=== PATIENT | female | born 1945 | race Caucasian/White ===

== ENCOUNTER 2017-12-17 19:01 | Inpatient (IN) | payer MEDICARE, OTHER ==
[~2017-12-17] VITALS: Ht 160 cm; Wt 79.5 kg
[2017-12-17] VITALS (132 sets, daily range): BP systolic 144; BP diastolic 98; PULSE 105; TEMP 97.7; O2SAT 89–100
[2017-12-17 21:54] LABS: BASO % 0.3 % (0.0-2.0); EOS # 0.1 (0.0-0.7); EOS % 1.1 % (0-4.0); GRAN # 6.4 (1.4-6.5); GRAN % 84.9 % (42.2-75.2); HEMATOCRIT 42.2 % (37.0-47.0); HEMOGLOBIN 13.8 g/dl (12.5-16.0); LYMPH # 0.6 (1.2-3.4); LYMPH % 8.2 % (20.0-51.0); MEAN CELL VOLUME 85 fl (80.0-100.0); MEAN CORPUSCULAR HEMOGLOBIN 28 pg (27.0-31.0); MEAN CORPUSCULAR HGB CONC 33 g/dl (33.0-37.0); MEAN PLATELET VOLUME 11.8 fl (7.4-10.4); MONO # 0.4 (0.1-0.6); MONO % 5.4 % (1.7-9.3); PLATELET COUNT 175 K/mm3 (130-400); RED BLOOD COUNT 4.96 M/mm3 (4.10-5.30); REDCELL DISTRIBUTION WIDTH-CV 15.9 % (11.5-14.5)
[2017-12-17 21:59] LABS: INR 1.2 (0.8-3.0)
[2017-12-17 22:03] LABS: MAGNESIUM 2.1 mg/dL (1.6-2.3); PHOSPHOROUS 4.4 mg/dL (2.5-4.5)
[2017-12-17 22:10] LABS: ALBUMIN 2.5 gm/dL (3.5-5.0); BILIRUBIN UNCONJUGATED 0.9 mg/dL (0.0-1.1); BILIRUBIN,DIRECT 0.4 mg/dL (0.0-0.4); BILIRUBIN,TOTAL 1.3 mg/dL (0.0-1.0); CALCIUM 8.3 mg/dL (8.4-10.2); CREATININE, serum 2.77 mg/dL (0.52-1.25); TOTAL PROTEIN 5.1 gm/dL (6.4-8.2)
[2017-12-17 22:12] LABS: POTASSIUM 2.7 mmol/L (3.4-5.0)
[2017-12-17] MEDS ORDERED: TOPROL XL 25MG25 MG PO (22:35)
[2017-12-17] MEDS ORDERED: PRINIVIL20 MG PO (22:35)
[2017-12-17] MEDS ORDERED: LASIX 20MG TABL20 MG PO (22:36)
[2017-12-18] VITALS (791 sets, daily range): BP systolic 125–147; BP diastolic 65–87; PULSE 92–102; TEMP 96.9–97.9; O2SAT 91–100
[2017-12-18 00:47] LABS: PRE ALBUMIN 11.9 mg/dL (17.6-36.0)
[2017-12-18 01:27] LABS: HYALINE CAST >12 /lpf; MUCOUS Present /lpf; PH 5 (5-8); URINE APPEARANCE Cloudy; URINE BACTERIA Moderate /hpf; URINE BILIRUBIN Negative (NEGATIVE); URINE BLOOD 3+ (NEGATIVE); URINE COLOR Amber; URINE GLUCOSE 1+ (NEGATIVE); URINE KETONE Negative (NEGATIVE); URINE LEUKOCYTE ESTERASE Negative (NEGATIVE); URINE NITRATE Negative (NEGATIVE); URINE PROTEIN(semi-quant) 3+ (NEGATIVE); URINE RBC >50 /hpf; URINE UROBILINOGEN Negative (NEGATIVE)
[2017-12-18 01:46] LABS: COLLECTION METHOD CLEAN CATCH
[2017-12-18 05:37] LABS: BASO % 0.4 % (0.0-2.0); EOS # 0.1 (0.0-0.7); EOS % 0.9 % (0-4.0); GRAN # 5.6 (1.4-6.5); GRAN % 83.6 % (42.2-75.2); HEMATOCRIT 43.7 % (37.0-47.0); HEMOGLOBIN 13.8 g/dl (12.5-16.0); LYMPH # 0.6 (1.2-3.4); LYMPH % 8.4 % (20.0-51.0); MEAN CELL VOLUME 86 fl (80.0-100.0); MEAN CORPUSCULAR HEMOGLOBIN 27 pg (27.0-31.0); MEAN CORPUSCULAR HGB CONC 32 g/dl (33.0-37.0); MEAN PLATELET VOLUME 12.1 fl (7.4-10.4); MONO # 0.4 (0.1-0.6); MONO % 6.3 % (1.7-9.3); PLATELET COUNT 192 K/mm3 (130-400); RED BLOOD COUNT 5.06 M/mm3 (4.10-5.30); REDCELL DISTRIBUTION WIDTH-CV 15.9 % (11.5-14.5)
[2017-12-18 05:47] LABS: CALCIUM 8.1 mg/dL (8.4-10.2); CREATININE, serum 2.9 mg/dL (0.52-1.25); MAGNESIUM 2.1 mg/dL (1.6-2.3); PHOSPHOROUS 4.2 mg/dL (2.5-4.5); POTASSIUM 3.2 mmol/L (3.4-5.0)
[2017-12-18 20:46] LABS: URINE PROTEIN:CREAT RATIO 18.2 (0.00-0.14)
[2017-12-19] VITALS (80 sets, daily range): BP systolic 126–155; BP diastolic 69–90; PULSE 86–107; TEMP 97.3–98.4; O2SAT 75–98
[2017-12-19 01:17] LABS: COLLECTION METHOD RANDOM VOIDED
[2017-12-19 02:23] LABS: AMORPHOUS CRYSTAL Present /uL; GRANULAR CAST >12 /lpf; MUCOUS Present /lpf; PH 5 (5-8); SQUAMOUS EPITHELIAL >50 /hpf; URINE APPEARANCE Cloudy; URINE BACTERIA Moderate /hpf; URINE BILIRUBIN Negative (NEGATIVE); URINE BLOOD 3+ (NEGATIVE); URINE COLOR Amber; URINE GLUCOSE 1+ (NEGATIVE); URINE KETONE Negative (NEGATIVE); URINE LEUKOCYTE ESTERASE Trace (NEGATIVE); URINE NITRATE Negative (NEGATIVE); URINE PROTEIN(semi-quant) 3+ (NEGATIVE); URINE RBC >50 /hpf; URINE UROBILINOGEN Negative (NEGATIVE); URINE WBC >50 /hpf
[2017-12-19 05:49] LABS: HEMATOCRIT 42.7 % (37.0-47.0); HEMOGLOBIN 13.5 g/dl (12.5-16.0); MEAN CELL VOLUME 87 fl (80.0-100.0); MEAN CORPUSCULAR HEMOGLOBIN 27 pg (27.0-31.0); MEAN CORPUSCULAR HGB CONC 32 g/dl (33.0-37.0); MEAN PLATELET VOLUME 11.7 fl (7.4-10.4); PLATELET COUNT 186 K/mm3 (130-400); RED BLOOD COUNT 4.92 M/mm3 (4.10-5.30); REDCELL DISTRIBUTION WIDTH-CV 16.2 % (11.5-14.5)
[2017-12-19 06:07] LABS: ALBUMIN 2.8 gm/dL (3.5-5.0); BILIRUBIN,TOTAL 1.1 mg/dL (0.0-1.0); CALCIUM 8.3 mg/dL (8.4-10.2); CREATININE, serum 2.9 mg/dL (0.52-1.25); POTASSIUM 3.5 mmol/L (3.4-5.0); TOTAL PROTEIN 5.7 gm/dL (6.4-8.2)
[2017-12-19 06:35] LABS: TROPONIN-I 0.085 ng/mL (0.000-0.034)
[2017-12-19 07:44] LABS: BAND 14 % (0-10); EOSINOPHIL 1 % (0-4); LYMPHOCYTE 4 % (20.0-51.0); NEUTROPHILS 78 % (42.0-75.2); PLATELET ESTIMATE NORMAL (NORMAL)
[2017-12-20] VITALS (25 sets, daily range): BP systolic 103–156; BP diastolic 54–93; PULSE 72–107; TEMP 97.1–98.4
[2017-12-20 08:17] LABS: BASO % 0.5 % (0.0-2.0); EOS # 0.1 (0.0-0.7); EOS % 1.5 % (0-4.0); GRAN # 5.2 (1.4-6.5); GRAN % 79.9 % (42.2-75.2); HEMATOCRIT 41.5 % (37.0-47.0); HEMOGLOBIN 12.9 g/dl (12.5-16.0); LYMPH # 0.7 (1.2-3.4); LYMPH % 11.3 % (20.0-51.0); MEAN CELL VOLUME 89 fl (80.0-100.0); MEAN CORPUSCULAR HEMOGLOBIN 28 pg (27.0-31.0); MEAN CORPUSCULAR HGB CONC 31 g/dl (33.0-37.0); MEAN PLATELET VOLUME 12.3 fl (7.4-10.4); MONO # 0.4 (0.1-0.6); MONO % 6.6 % (1.7-9.3); PLATELET COUNT 187 K/mm3 (130-400); RED BLOOD COUNT 4.68 M/mm3 (4.10-5.30); REDCELL DISTRIBUTION WIDTH-CV 16.3 % (11.5-14.5)
[2017-12-20 08:25] LABS: CALCIUM 8.5 mg/dL (8.4-10.2); CREATININE, serum 2.92 mg/dL (0.52-1.25); POTASSIUM 3.4 mmol/L (3.4-5.0)
[2017-12-20 11:45] LABS: TOTAL COMPLEMENT(CH50) 55 U/mL (30 - 75)
[2017-12-20 23:50] LABS: C-ANCA 7 U/mL (0-99)
[2017-12-21 07:54] VITALS: BP 140/67; PULSE 77; TEMP 97.5
[2017-12-21 08:09] LABS: CREATININE, serum 3.08 mg/dL (0.52-1.25); POTASSIUM 3.2 mmol/L (3.4-5.0)
[2017-12-21 12:01] VITALS: BP 141/68; PULSE 83; TEMP 97.9
[2017-12-21 16:48] VITALS: BP 135/86; PULSE 78; TEMP 98.4
[2017-12-21 20:28] VITALS: BP 129/61; PULSE 84; TEMP 98.1
[2017-12-22 01:54] VITALS: BP 130/84; PULSE 71; TEMP 98.9
[2017-12-22 05:06] VITALS: BP 104/49; PULSE 97; TEMP 97.5
[2017-12-22 07:35] LABS: BASO % 0.5 % (0.0-2.0); EOS # 0.1 (0.0-0.7); EOS % 1.8 % (0-4.0); GRAN # 4.6 (1.4-6.5); GRAN % 76.3 % (42.2-75.2); HEMATOCRIT 38.9 % (37.0-47.0); HEMOGLOBIN 12.2 g/dl (12.5-16.0); LYMPH # 0.8 (1.2-3.4); LYMPH % 12.5 % (20.0-51.0); MEAN CELL VOLUME 87 fl (80.0-100.0); MEAN CORPUSCULAR HEMOGLOBIN 27 pg (27.0-31.0); MEAN CORPUSCULAR HGB CONC 31 g/dl (33.0-37.0); MEAN PLATELET VOLUME 11.8 fl (7.4-10.4); MONO # 0.5 (0.1-0.6); MONO % 8.4 % (1.7-9.3); PLATELET COUNT 161 K/mm3 (130-400); RED BLOOD COUNT 4.47 M/mm3 (4.10-5.30); REDCELL DISTRIBUTION WIDTH-CV 16.5 % (11.5-14.5)
[2017-12-22 07:50] LABS: CALCIUM 8.1 mg/dL (8.4-10.2); CREATININE, serum 3.29 mg/dL (0.52-1.25); PHOSPHOROUS 4.9 mg/dL (2.5-4.5); POTASSIUM 3.4 mmol/L (3.4-5.0)
[2017-12-22 08:10] VITALS: BP 138/82; PULSE 81; TEMP 97.7
[2017-12-22 12:16] VITALS: BP 131/71; PULSE 82; TEMP 97.8
[2017-12-22 16:00] VITALS: BP 131/61; PULSE 92; TEMP 97.5
[2017-12-22 20:06] VITALS: BP 134/61; PULSE 86; TEMP 97.7
[2017-12-23] VITALS (8 sets, daily range): BP systolic 107–157; BP diastolic 66–84; PULSE 83–98; TEMP 97.5–98.3
[2017-12-23 07:10] LABS: URINE PROTEIN:CREAT RATIO 9.08 (0.00-0.14)
[2017-12-23 07:24] LABS: BASO % 0.5 % (0.0-2.0); EOS # 0.1 (0.0-0.7); EOS % 2.1 % (0-4.0); GRAN # 4.5 (1.4-6.5); GRAN % 77.4 % (42.2-75.2); HEMATOCRIT 41.6 % (37.0-47.0); LYMPH # 0.7 (1.2-3.4); LYMPH % 11.7 % (20.0-51.0); MEAN CELL VOLUME 89 fl (80.0-100.0); MEAN CORPUSCULAR HEMOGLOBIN 28 pg (27.0-31.0); MEAN CORPUSCULAR HGB CONC 31 g/dl (33.0-37.0); MEAN PLATELET VOLUME 11.8 fl (7.4-10.4); MONO # 0.5 (0.1-0.6); PLATELET COUNT 167 K/mm3 (130-400); RED BLOOD COUNT 4.68 M/mm3 (4.10-5.30); REDCELL DISTRIBUTION WIDTH-CV 16.4 % (11.5-14.5)
[2017-12-23 07:48] LABS: CALCIUM 8.2 mg/dL (8.4-10.2); CREATININE, serum 3.23 mg/dL (0.52-1.25); POTASSIUM 3.5 mmol/L (3.4-5.0)
[2017-12-23 18:12] LABS: HIV 1/2 Antibodies Non-Reactive; HIV-1p24 Antigen Non-Reactive
[2017-12-23 21:52] LABS: URINE PROTEIN:CREAT RATIO 13.2 (0.00-0.14)
[2017-12-24 04:09] VITALS: BP 132/74; PULSE 92
[2017-12-24 06:38] LABS: BASO % 0.7 % (0.0-2.0); EOS # 0.2 (0.0-0.7); EOS % 2.7 % (0-4.0); GRAN # 4.2 (1.4-6.5); GRAN % 76.4 % (42.2-75.2); HEMATOCRIT 37.5 % (37.0-47.0); LYMPH # 0.6 (1.2-3.4); LYMPH % 11.4 % (20.0-51.0); MEAN CELL VOLUME 87 fl (80.0-100.0); MEAN CORPUSCULAR HEMOGLOBIN 27 pg (27.0-31.0); MEAN CORPUSCULAR HGB CONC 31 g/dl (33.0-37.0); MEAN PLATELET VOLUME 11.4 fl (7.4-10.4); MONO # 0.5 (0.1-0.6); MONO % 8.3 % (1.7-9.3); PLATELET COUNT 163 K/mm3 (130-400); RED BLOOD COUNT 4.32 M/mm3 (4.10-5.30); REDCELL DISTRIBUTION WIDTH-CV 16.1 % (11.5-14.5)
[2017-12-24 06:43] LABS: HEMOGLOBIN 11.7 g/dl (12.5-16.0)
[2017-12-24 06:54] LABS: CALCIUM 7.9 mg/dL (8.4-10.2); CREATININE, serum 3.33 mg/dL (0.52-1.25); POTASSIUM 3.3 mmol/L (3.4-5.0)
[2017-12-24 08:05] VITALS: BP 145/73; PULSE 80; TEMP 97.5
[2017-12-24 12:37] VITALS: BP 148/67; PULSE 87; TEMP 97.5
[2017-12-24 17:22] VITALS: BP 150/69; PULSE 87; TEMP 97.9
[2017-12-24 17:44] LABS: COMPLEMENT-C3 130 mg/dL (79-152); COMPLEMENT-C4 36 mg/dL (18-55)
[2017-12-24 20:16] VITALS: BP 159/92; PULSE 103; TEMP 98.5
[2017-12-25] VITALS (8 sets, daily range): BP systolic 141–156; BP diastolic 72–96; PULSE 86–103; TEMP 97.5–98
[2017-12-25 06:43] LABS: BASO % 0.7 % (0.0-2.0); EOS # 0.1 (0.0-0.7); EOS % 2.2 % (0-4.0); GRAN # 4.5 (1.4-6.5); GRAN % 75.7 % (42.2-75.2); HEMATOCRIT 41.5 % (37.0-47.0); HEMOGLOBIN 12.9 g/dl (12.5-16.0); LYMPH # 0.7 (1.2-3.4); LYMPH % 11.8 % (20.0-51.0); MEAN CELL VOLUME 88 fl (80.0-100.0); MEAN CORPUSCULAR HEMOGLOBIN 27 pg (27.0-31.0); MEAN CORPUSCULAR HGB CONC 31 g/dl (33.0-37.0); MEAN PLATELET VOLUME 11.5 fl (7.4-10.4); MONO # 0.6 (0.1-0.6); MONO % 9.3 % (1.7-9.3); PLATELET COUNT 176 K/mm3 (130-400); RED BLOOD COUNT 4.73 M/mm3 (4.10-5.30); REDCELL DISTRIBUTION WIDTH-CV 16.1 % (11.5-14.5)
[2017-12-25 06:56] LABS: CALCIUM 8.3 mg/dL (8.4-10.2); CREATININE, serum 3.57 mg/dL (0.52-1.25); MAGNESIUM 1.9 mg/dL (1.6-2.3); POTASSIUM 3.7 mmol/L (3.4-5.0)
[2017-12-26 01:06] VITALS: BP 139/68; PULSE 100; TEMP 97.2
[2017-12-26 06:02] LABS: HEMATOCRIT 41.5 % (37.0-47.0); MEAN CELL VOLUME 87 fl (80.0-100.0); MEAN CORPUSCULAR HEMOGLOBIN 27 pg (27.0-31.0); MEAN CORPUSCULAR HGB CONC 31 g/dl (33.0-37.0); MEAN PLATELET VOLUME 11.3 fl (7.4-10.4); PLATELET COUNT 167 K/mm3 (130-400); RED BLOOD COUNT 4.79 M/mm3 (4.10-5.30); REDCELL DISTRIBUTION WIDTH-CV 16.2 % (11.5-14.5)
[2017-12-26 06:28] LABS: CALCIUM 8.2 mg/dL (8.4-10.2); CREATININE, serum 3.65 mg/dL (0.52-1.25); POTASSIUM 3.6 mmol/L (3.4-5.0)
[2017-12-26 09:24] VITALS: BP 150/96; PULSE 102; TEMP 98.2
[2017-12-26 09:38] LABS: ANISOCYTOSIS 1+; BAND 26 % (0-10); LYMPHOCYTE 4 % (20.0-51.0); NEUTROPHILS 70 % (42.0-75.2); PLATELET ESTIMATE NORMAL (NORMAL)
[2017-12-26 09:39] LABS: OVALOCYTES 1+
[2017-12-26 12:37] VITALS: BP 132/73; PULSE 94; TEMP 98.8
[2017-12-26 15:40] VITALS: BP 134/56; PULSE 97; TEMP 97.6
[2017-12-26 19:35] VITALS: BP 128/62; PULSE 98; TEMP 97.9
[2017-12-27 00:54] VITALS: BP 170/123; PULSE 131; TEMP 98.1
[2017-12-27 04:28] VITALS: BP 153/98; PULSE 117; TEMP 97.4
[2017-12-27 06:44] LABS: CALCIUM 8.3 mg/dL (8.4-10.2); POTASSIUM 3.7 mmol/L (3.4-5.0)
[2017-12-27 06:49] LABS: CREATININE, serum 4.14 mg/dL (0.52-1.25)
[2017-12-27 08:00] VITALS: BP 144/59; PULSE 106; TEMP 97.5
[2017-12-27 12:35] VITALS: BP 149/79; PULSE 93; TEMP 96.7
[2017-12-27 16:38] VITALS: BP 121/82; PULSE 82; TEMP 98
[2017-12-27 19:54] VITALS: BP 145/94; PULSE 85; TEMP 97.7
[2017-12-28 00:45] VITALS: BP 148/76; PULSE 84; TEMP 98.7
[2017-12-28 04:46] VITALS: BP 116/65; PULSE 83; TEMP 98.7
[2017-12-28 07:21] VITALS: BP 117/62; PULSE 77; TEMP 97.1
[2017-12-28 07:45] LABS: CALCIUM 8.1 mg/dL (8.4-10.2); MAGNESIUM 2.2 mg/dL (1.6-2.3); POTASSIUM 3.6 mmol/L (3.4-5.0)
[2017-12-28 07:52] LABS: CREATININE, serum 4.56 mg/dL (0.52-1.25)
[2017-12-28 11:32] VITALS: BP 125/73; PULSE 80; TEMP 97.5
[2017-12-28] MEDS ORDERED: ELIQUIS 5MG PO (13:19)
[2017-12-28] MEDS ORDERED: ZESTRIL2.5 MG PO (13:20)
[2017-12-28] MEDS ORDERED: LASIX 40MG TABL40 MG PO (13:20)
[2017-12-28] MEDS ORDERED: PROBIOTIC GOLD1 EACH PO (13:21)
[2017-12-28] MEDS ORDERED: PROTONIX 40MG T40 MG PO (13:21)
[2017-12-28] MEDS ORDERED: ZAROXOLYN 2.52.5 MG PO (13:21)
[2017-12-28] MEDS ORDERED: PREDNISONE20 MG PO (13:21)
[2018-01-08 13:45] LABS: CRYOFIBRINOGEN XXX; CRYOGLOBULIN XXX
== END 2017-12-28 15:39 | disposition home or self-care (01) | DRG 699 ==
LOC: ICU 19:01 → MEDICAL 21:13 → ICU 21:13 → MEDICAL 12-19 16:16
PROVIDERS: Internal Medicine; Internal Medicine Nephrology; Physician Assistant
PROC: 0TB13ZX Excision of Left Kidney, Percutaneous Approach, Diagnostic (ICD-10-PCS; principal; 2017-12-20)
DX: N01.9 Rapidly progressive nephritic syndrome with unspecified morphologic changes (principal); N39.0 Urinary tract infection, site not specified; I74.19 Embolism and thrombosis of other parts of aorta; J90 Pleural effusion, not elsewhere classified; E46 Unspecified protein-calorie malnutrition; N17.9 Acute kidney failure, unspecified; I10 Essential (primary) hypertension; E87.6 Hypokalemia; R73.9 Hyperglycemia, unspecified; Z87.891 Personal history of nicotine dependence; I08.1 Rheumatic disorders of both mitral and tricuspid valves; B96.20 Unspecified Escherichia coli [E. coli] as the cause of diseases classified elsewhere
CPT/HCPCS: 99222-AI; 99231-AI; 99232-AI; 99233-AI; 99239; G0365; J0360; J1644; J1815; J2250; J2930; J3010; J3411; J3475; J3480; J7040; J7060; J7512

== ENCOUNTER → 2018-01-02 | Outpatient (CLI) | payer MEDICARE, OTHER ==
[~2018-01-02] MED LIST: ELIQUIS 5MG PO; LASIX 20MG TABL20 MG PO; LASIX 40MG TABL40 MG PO; PREDNISONE20 MG PO; PRINIVIL20 MG PO; PROBIOTIC GOLD1 EACH PO; PROTONIX 40MG T40 MG PO; TOPROL XL 25MG25 MG PO; ZAROXOLYN 2.52.5 MG PO; ZESTRIL2.5 MG PO
[2018-01-02 16:13] LABS: HEMATOCRIT 42.3 % (37.0-47.0); HEMOGLOBIN 13.6 g/dl (12.5-16.0); MEAN CELL VOLUME 85 fl (80.0-100.0); MEAN CORPUSCULAR HEMOGLOBIN 27 pg (27.0-31.0); MEAN CORPUSCULAR HGB CONC 32 g/dl (33.0-37.0); MEAN PLATELET VOLUME 12.7 fl (7.4-10.4); PLATELET COUNT 224 K/mm3 (130-400); RED BLOOD COUNT 4.96 M/mm3 (4.10-5.30); REDCELL DISTRIBUTION WIDTH-CV 16.8 % (11.5-14.5)
[2018-01-02 16:20] LABS: ALBUMIN 2.8 gm/dL (3.5-5.0); CALCIUM 8.4 mg/dL (8.4-10.2); POTASSIUM 4.2 mmol/L (3.4-5.0)
[2018-01-02 16:39] LABS: PHOSPHOROUS 11.1 mg/dL (2.5-4.5)
[2018-01-02 16:42] LABS: CREATININE, serum 5.46 mg/dL (0.52-1.25)
== END ==
LOC: COL.LAB 15:39
PROVIDERS: Internal Medicine
DX: N17.9 Acute kidney failure, unspecified (principal); N05.9 Unspecified nephritic syndrome with unspecified morphologic changes

== ENCOUNTER 2018-01-06 17:11 | Inpatient (IN) | payer MEDICARE, OTHER ==
[~2018-01-06] VITALS: Ht 160 cm; Wt 78.6 kg
[2018-01-06 17:29] VITALS: BP 153/90; PULSE 95; TEMP 98
[2018-01-06 20:07] VITALS: BP 146/88; PULSE 98; TEMP 98.1
[2018-01-06 23:11] VITALS: BP 148/96; PULSE 98; TEMP 97.4
[2018-01-07] VITALS (12 sets, daily range): BP systolic 136–167; BP diastolic 66–96; PULSE 57–107; TEMP 97.2–98.6
[2018-01-07 06:50] LABS: HEMATOCRIT 37.8 % (37.0-47.0); HEMOGLOBIN 12.2 g/dl (12.5-16.0); MEAN CELL VOLUME 86 fl (80.0-100.0); MEAN CORPUSCULAR HEMOGLOBIN 28 pg (27.0-31.0); MEAN CORPUSCULAR HGB CONC 32 g/dl (33.0-37.0); PLATELET COUNT 136 K/mm3 (130-400); RED BLOOD COUNT 4.41 M/mm3 (4.10-5.30)
[2018-01-07 07:04] LABS: ALBUMIN 2.5 gm/dL (3.5-5.0); BILIRUBIN,TOTAL 0.8 mg/dL (0.0-1.0); CALCIUM 7.9 mg/dL (8.4-10.2); POTASSIUM 3.7 mmol/L (3.4-5.0); TOTAL PROTEIN 4.8 gm/dL (6.4-8.2)
[2018-01-07 07:10] LABS: INR 1.7 (0.8-3.0); PROTHROMBIN TIME 19.9 SECONDS (9.7-12.8)
[2018-01-07 07:16] LABS: CREATININE, serum 5.95 mg/dL (0.52-1.25)
[2018-01-07 09:40] LABS: BAND 17 % (0-10); LYMPHOCYTE 4 % (20.0-51.0); NEUTROPHILS 77 % (42.0-75.2); PLATELET ESTIMATE NORMAL (NORMAL)
[2018-01-07 12:36] LABS: PARTIAL THROMBOPLASTIN TIME 32.2 SECONDS (26.0-37.0)
[2018-01-07 16:12] LABS: COLLECTION METHOD CATHETER
[2018-01-07 16:25] LABS: PH 5 (5-8); URINE APPEARANCE Cloudy; URINE BILIRUBIN Negative (NEGATIVE); URINE BLOOD 2+ (NEGATIVE); URINE COLOR Red; URINE GLUCOSE 1+ (NEGATIVE); URINE KETONE Negative (NEGATIVE); URINE LEUKOCYTE ESTERASE Negative (NEGATIVE); URINE NITRATE Negative (NEGATIVE); URINE PROTEIN(semi-quant) 2+ (NEGATIVE); URINE UROBILINOGEN Negative (NEGATIVE)
[2018-01-07 17:14] LABS: URINE RBC >50 /hpf; URINE WBC >50 /hpf
[2018-01-07 17:20] LABS: URINE BACTERIA Moderate /hpf
[2018-01-08 00:47] LABS: PARTIAL THROMBOPLASTIN TIME 31.2 SECONDS (26.0-37.0)
[2018-01-08 03:09] VITALS: BP 147/78; PULSE 88; TEMP 97.8
[2018-01-08 06:32] LABS: HEMATOCRIT 38.5 % (37.0-47.0); HEMOGLOBIN 12.4 g/dl (12.5-16.0); MEAN CELL VOLUME 85 fl (80.0-100.0); MEAN CORPUSCULAR HEMOGLOBIN 27 pg (27.0-31.0); MEAN CORPUSCULAR HGB CONC 32 g/dl (33.0-37.0); MEAN PLATELET VOLUME 13.6 fl (7.4-10.4); PLATELET COUNT 126 K/mm3 (130-400); RED BLOOD COUNT 4.55 M/mm3 (4.10-5.30); REDCELL DISTRIBUTION WIDTH-CV 17.2 % (11.5-14.5)
[2018-01-08 06:57] LABS: CALCIUM 8.1 mg/dL (8.4-10.2); MAGNESIUM 2.1 mg/dL (1.6-2.3); POTASSIUM 3.9 mmol/L (3.4-5.0)
[2018-01-08 07:10] LABS: CREATININE, serum 5.01 mg/dL (0.52-1.25)
[2018-01-08 08:01] LABS: BAND 9 % (0-10); LYMPHOCYTE 2 % (20.0-51.0); NEUTROPHILS 87 % (42.0-75.2); PLATELET ESTIMATE DECREASED (NORMAL)
[2018-01-08 08:02] LABS: ANISOCYTOSIS 1+; HYPOCHROMIA 1+
[2018-01-08 08:18] VITALS: BP 148/90; PULSE 85; TEMP 98.3
[2018-01-08 11:36] VITALS: BP 139/65; PULSE 92; TEMP 98.4
[2018-01-08 15:35] LABS: HEMATOCRIT 35.6 % (37.0-47.0); HEMOGLOBIN 11.8 g/dl (12.5-16.0)
[2018-01-08 16:11] VITALS: BP 138/80; PULSE 80; TEMP 97.8
[2018-01-08 20:00] VITALS: BP 145/76; PULSE 84; TEMP 97.7
[2018-01-09] VITALS (11 sets, daily range): BP systolic 131–152; BP diastolic 63–85; PULSE 74–94; TEMP 97.5–98.6
[2018-01-09 08:37] LABS: HEMATOCRIT 36.4 % (37.0-47.0); HEMOGLOBIN 11.7 g/dl (12.5-16.0); MEAN CELL VOLUME 85 fl (80.0-100.0); MEAN CORPUSCULAR HEMOGLOBIN 27 pg (27.0-31.0); MEAN CORPUSCULAR HGB CONC 32 g/dl (33.0-37.0); MEAN PLATELET VOLUME 12.9 fl (7.4-10.4); PLATELET COUNT 108 K/mm3 (130-400); RED BLOOD COUNT 4.27 M/mm3 (4.10-5.30); REDCELL DISTRIBUTION WIDTH-CV 17.1 % (11.5-14.5)
[2018-01-09 08:47] LABS: MAGNESIUM 2.1 mg/dL (1.6-2.3); POTASSIUM 3.6 mmol/L (3.4-5.0)
[2018-01-09 08:48] LABS: CREATININE, serum 4.21 mg/dL (0.52-1.25)
[2018-01-09 09:41] LABS: ANISOCYTOSIS 1+; BAND 25 % (0-10); LYMPHOCYTE 7 % (20.0-51.0); NEUTROPHILS 67 % (42.0-75.2); PLATELET ESTIMATE DECREASED (NORMAL)
[2018-01-10] VITALS (7 sets, daily range): BP systolic 128–149; BP diastolic 54–90; PULSE 72–87; TEMP 97.3–98.4
[2018-01-10 08:01] LABS: MEAN CELL VOLUME 87 fl (80.0-100.0); MEAN CORPUSCULAR HGB CONC 32 g/dl (33.0-37.0); MEAN PLATELET VOLUME 13.7 fl (7.4-10.4); PLATELET COUNT 103 K/mm3 (130-400); RED BLOOD COUNT 4.22 M/mm3 (4.10-5.30)
[2018-01-10 08:03] LABS: HEMATOCRIT 36.5 % (37.0-47.0); HEMOGLOBIN 11.6 g/dl (12.5-16.0); MEAN CORPUSCULAR HEMOGLOBIN 27 pg (27.0-31.0)
[2018-01-10 08:07] LABS: CALCIUM 7.9 mg/dL (8.4-10.2); CREATININE, serum 3.27 mg/dL (0.52-1.25); POTASSIUM 3.6 mmol/L (3.4-5.0)
[2018-01-10 08:49] LABS: BAND 7 % (0-10); LYMPHOCYTE 5 % (20.0-51.0); NEUTROPHILS 85 % (42.0-75.2)
[2018-01-10 08:50] LABS: ANISOCYTOSIS 1+; PLATELET ESTIMATE DECREASED (NORMAL)
[2018-01-11 03:53] VITALS: BP 163/81; PULSE 88; TEMP 97.8
[2018-01-11 08:00] VITALS: BP 152/87; PULSE 84; TEMP 98.2
[2018-01-11 11:09] VITALS: BP 151/86; PULSE 87; TEMP 97.5
[2018-01-11 15:23] VITALS: BP 148/72; PULSE 83; TEMP 97.6
[2018-01-11 18:56] VITALS: BP 169/86; PULSE 87; TEMP 98.1
[2018-01-11 23:50] VITALS: BP 156/94; PULSE 87; TEMP 98.3
[2018-01-12 03:08] VITALS: BP 165/89; PULSE 94; TEMP 98.5
[2018-01-12 07:39] LABS: MEAN CELL VOLUME 88 fl (80.0-100.0); MEAN CORPUSCULAR HGB CONC 31 g/dl (33.0-37.0); MEAN PLATELET VOLUME 12.1 fl (7.4-10.4); PLATELET COUNT 77 K/mm3 (130-400); RED BLOOD COUNT 4.01 M/mm3 (4.10-5.30); REDCELL DISTRIBUTION WIDTH-CV 16.5 % (11.5-14.5)
[2018-01-12 07:41] LABS: HEMATOCRIT 35.1 % (37.0-47.0); MEAN CORPUSCULAR HEMOGLOBIN 27 pg (27.0-31.0)
[2018-01-12 07:52] LABS: CALCIUM 7.7 mg/dL (8.4-10.2); CREATININE, serum 3.72 mg/dL (0.52-1.25); MAGNESIUM 2.1 mg/dL (1.6-2.3); PHOSPHOROUS 4.6 mg/dL (2.5-4.5); POTASSIUM 3.8 mmol/L (3.4-5.0)
[2018-01-12 08:00] VITALS: BP 158/93; PULSE 92; TEMP 97.6
[2018-01-12 09:31] LABS: BAND 7 % (0-10); LYMPHOCYTE 2 % (20.0-51.0); METAMYELOCYTE 1 % (0-0); NEUTROPHILS 89 % (42.0-75.2); PLATELET ESTIMATE DECREASED (NORMAL)
[2018-01-12 09:32] LABS: HYPOCHROMIA 2+
[2018-01-12 09:33] LABS: OVALOCYTES 1+; POIKILOCYTOSIS 1+
[2018-01-12 10:54] VITALS: BP 155/90; PULSE 91; TEMP 97.3
[2018-01-12 16:00] VITALS: BP 142/89; PULSE 96; TEMP 98.2
[2018-01-12 19:21] VITALS: BP 141/83; PULSE 92; TEMP 98.1
[2018-01-13 00:04] VITALS: BP 157/88; PULSE 88; TEMP 98
[2018-01-13 05:39] VITALS: BP 155/99; PULSE 85; TEMP 97.6
[2018-01-13 07:37] VITALS: BP 154/94; PULSE 87; TEMP 98.2
[2018-01-13 07:43] LABS: MEAN CELL VOLUME 86 fl (80.0-100.0); MEAN CORPUSCULAR HGB CONC 32 g/dl (33.0-37.0); MEAN PLATELET VOLUME 13.6 fl (7.4-10.4); PLATELET COUNT 110 K/mm3 (130-400); RED BLOOD COUNT 4.15 M/mm3 (4.10-5.30); REDCELL DISTRIBUTION WIDTH-CV 16.8 % (11.5-14.5)
[2018-01-13 07:56] LABS: CALCIUM 7.9 mg/dL (8.4-10.2)
[2018-01-13 08:11] LABS: CREATININE, serum 4.35 mg/dL (0.52-1.25)
[2018-01-13 08:17] LABS: POTASSIUM 4.1 mmol/L (3.4-5.0)
[2018-01-13 08:45] LABS: HEMATOCRIT 35.6 % (37.0-47.0); HEMOGLOBIN 11.3 g/dl (12.5-16.0); MEAN CORPUSCULAR HEMOGLOBIN 27 pg (27.0-31.0)
[2018-01-13 12:21] VITALS: BP 131/74; PULSE 74; TEMP 97.7
== END 2018-01-13 15:59 | DRG 698 ==
LOC: MEDICAL 17:11
PROVIDERS: Family Medicine; Internal Medicine; Nurse Practitioner; Nurse Practitioner Family; Physician Assistant
PROC: 02HV33Z Insertion of Infusion Device into Superior Vena Cava, Percutaneous Approach (ICD-10-PCS; principal; 2018-01-07)
PROC: 5A1D70Z Performance of Urinary Filtration, Intermittent, Less than 6 Hours Per Day (ICD-10-PCS; 2018-01-07)
PROC: 5A1D70Z Performance of Urinary Filtration, Intermittent, Less than 6 Hours Per Day (ICD-10-PCS; 2018-01-08)
PROC: 5A1D70Z Performance of Urinary Filtration, Intermittent, Less than 6 Hours Per Day (ICD-10-PCS; 2018-01-09)
PROC: 02HV33Z Insertion of Infusion Device into Superior Vena Cava, Percutaneous Approach (ICD-10-PCS; 2018-01-09)
PROC: 0JH63XZ Insertion of Tunneled Vascular Access Device into Chest Subcutaneous Tissue and Fascia, Percutaneous Approach (ICD-10-PCS; 2018-01-09)
PROC: 5A1D70Z Performance of Urinary Filtration, Intermittent, Less than 6 Hours Per Day (ICD-10-PCS; 2018-01-10)
PROC: 5A1D70Z Performance of Urinary Filtration, Intermittent, Less than 6 Hours Per Day (ICD-10-PCS; 2018-01-13)
DX: N04.7 Nephrotic syndrome with diffuse crescentic glomerulonephritis (principal); G93.41 Metabolic encephalopathy; J90 Pleural effusion, not elsewhere classified; N39.0 Urinary tract infection, site not specified; I74.10 Embolism and thrombosis of unspecified parts of aorta; E46 Unspecified protein-calorie malnutrition; N17.9 Acute kidney failure, unspecified; I12.9 Hypertensive chronic kidney disease with stage 1 through stage 4 chronic kidney disease, or unspecified chronic kidney disease; N18.9 Chronic kidney disease, unspecified; B96.20 Unspecified Escherichia coli [E. coli] as the cause of diseases classified elsewhere; Z79.01 Long term (current) use of anticoagulants; F17.210 Nicotine dependence, cigarettes, uncomplicated; E87.6 Hypokalemia; R73.9 Hyperglycemia, unspecified; E83.39 Other disorders of phosphorus metabolism
CPT/HCPCS: 99222-AI; 99232-AI; C1751; C1769; J0690; J1644; J1815; J1940; J2250; J3010; J3370; J7512